=== PATIENT | male | born 1995 | race Caucasian/White ===

== ENCOUNTER 2017-08-20 10:42 | Emergency (ER) | payer OTHER ==
[~2017-08-20 10:42] MED LIST: NAPR500T75 PO
--- NOTE | 2017-08-20 11:03 | ER Report ---
History and Physical Time Seen By MD: 11:02 Hx. of Stated Complaint: PATIENT REPORTS CHEST PAIN YESTERDAY MORNING. HE ALSO REPORTS DIZZINESS AND A HEADACHE. PATIENT REPORTS THAT HE IS FREE OF CHEST PAIN NOW BUT HEADACHE AND DIZZINESS ARE STILL PRESENT HPI/ROS CHIEF COMPLAINT: Chest pain HISTORY OF PRESENT ILLNESS: This is a 22-year-old male who presents to the emergency department for nausea, dizziness and resolving chest pain. Patient states that on the August he consumed large amount of alcohol and it up with some chest pain, since then he's had a resolution of the chest pain however he still has some residual dizziness, lightheadedness and a headache behind his eyes and overall just not feeling well. Still having intermittent shortness of breath. Patient states he consumes alcohol on a relatively regular basis, 4-5 drinks every few days. Patient also has a history of hypertension that is not being treated. Patient states he has a family history hypertension. No chills, no sore throats no rashes. REVIEW OF SYSTEMS: Constitutional: No fever, no chills. Eyes: No discharge. ENT: No sore throat. Cardiovascular: As above. Respiratory: No cough, no shortness of breath. Gastrointestinal: As above. Genitourinary: No hematuria. Musculoskeletal: No back pain. Skin: No rashes. Neurological: As above. Allergies: Coded Allergies: No Known Drug Allergies (Unverified , 01/24/17) Home Meds Discontinued Scripts Naproxen (NAPROSYN) 500 Mg Tablet, 500 MG PO Q12H for PAIN, #20 TAB 0 Refills Prov:SHEYLA RICKS MD 01/24/17 Past Medical/Surgical History The patient has a past medical and surgical history of vision problems, wears glasses, drinks 5-6 drinks every 2-3 days.. Reviewed Nurses Notes: Yes Constitutional Vital Sign - Last 24 Hours 08/20/17 08/20/17 08/20/17 08/20/17 10:45 10:48 10:57 11:03 Temp 102.1 Pulse 105 104 Resp 24 B/P (MAP) 149/98 149/98 (115) 152/101 (118) Pulse Ox 93 92 O2 Delivery Room Air 08/20/17 08/20/17 08/20/17 08/20/17 11:12 11:15 11:26 11:27 Temp 101.8 Pulse 101 101 95 Resp 14 11 13 Pulse Ox 92 92 94 08/20/17 08/20/17 08/20/17 08/20/17 11:30 11:42 11:45 11:55 Pulse 108 86 88 Resp 11 6 B/P (MAP) 141/88 (105) Pulse Ox 92 94 08/20/17 08/20/17 08/20/17 08/20/17 12:00 12:29 12:30 12:45 Pulse 91 92 94 Resp 14 12 11 B/P (MAP) 136/92 (107) Pulse Ox 93 92 93 O2 Delivery Room Air Room Air Room Air 08/20/17 13:18 Temp 100.3 Pulse 98 Resp 20 B/P (MAP) 141/86 (104) Pulse Ox 94 O2 Delivery Room Air Intake and Output 08/20/17 08/20/17 08/21/17 15:00 23:00 07:00 Intake Total 1000 ml Balance 1000 ml Physical Exam General Appearance: The patient is alert, has no immediate need for airway protection and no signs of toxicity. Eyes: Pupils equal and round no pallor or injection. ENT, Mouth: Mucous membranes are moist. Respiratory: There are no retractions, lungs are clear to auscultation. Cardiovascular: Regular rate and rhythm, no murmurs, clicks or rubs. Gastrointestinal: Abdomen is soft and non tender, no masses, bowel sounds normal. Neurological: Alert and oriented 4. Moving all extremities. Following all commands. No focal neuro deficits. Skin: Warm and dry, no rashes. Musculoskeletal: Neck is supple non tender. Extremities are nontender, nonswollen and have full range of motion. DIFFERENTIAL DIAGNOSIS: After history and physical exam differential diagnosis was considered for shortness of breath including but not limited to pulmonary infectious process, COPD, alcohol gastritis, asthma, pulmonary embolus and congestive heart failure. Medical Decision Making Data Points Result Diagram: 08/20/17 1053 08/20/17 1053 Laboratory Hematology Test 08/20/17 10:53 Red Blood Count 5.34 M/uL (4.00-5.60) Mean Corpuscular Volume 89.8 fL (80.0-96.0) Mean Corpuscular Hemoglobin 32.8 pg (26.0-33.0) Mean Corpuscular Hemoglobin Concent 36.6 g/dL (32.0-36.0) Red Cell Distribution Width 12.5 % (11.5-14.5) Mean Platelet Volume 8.9 fL (7.2-11.1) Neutrophils (%) (Auto) 66.8 % (39.4-72.5) Lymphocytes (%) (Auto) 21.2 % (17.6-49.6) Monocytes (%) (Auto) 11.2 % (4.1-12.4) Eosinophils (%) (Auto) 0.0 % (0.4-6.7) Basophils (%) (Auto) 0.8 % (0.3-1.4) Nucleated RBC Relative Count (auto) 0.1 /100WBC Neutrophils # (Auto) 2.4 K/uL (2.0-7.4) Lymphocytes # (Auto) 0.8 K/uL (1.3-3.6) Monocytes # (Auto) 0.4 K/uL (0.3-1.0) Eosinophils # (Auto) 0.0 K/uL (0.0-0.5) Basophils # (Auto) 0.0 K/uL (0.0-0.1) Nucleated RBC Absolute Count (auto) 0.00 K/uL D-Dimer Quantitative (PE/DVT) 0.51 ug/ml (0-0.50) Sodium Level 138 mmol/L (137-145) Potassium Level 3.4 mmol/L (3.5-5.0) Chloride Level 100 mmol/L (98-107) Carbon Dioxide Level 24 mmol/L (22-30) Blood Urea Nitrogen 10 mg/dl (9-21) Creatinine 1.20 mg/dl (0.66-1.25) Glomerular Filtration Rate Calc > 60.0 Random Glucose 107 mg/dl (75-110) Calcium Level 9.0 mg/dl (8.4-10.2) Total Bilirubin 1.0 mg/dl (0.2-1.3) Aspartate Amino Transf (AST/SGOT) 78 U/L (0-35) Alanine Aminotransferase (ALT/SGPT) 135 U/L (0-56) Alkaline Phosphatase 57 U/L (0-126) Troponin I < 0.012 ng/ml Total Protein 7.2 g/dl (6.3-8.2) Albumin 4.4 g/dl (3.5-5.0) Chemistry Test 08/20/17 10:53 White Blood Count 3.6 k/uL (4.5-11.0) Red Blood Count 5.34 M/uL (4.00-5.60) Hemoglobin 17.5 g/dL (14.0-18.0) Hematocrit 48.0 % (42.0-52.0) Mean Corpuscular Volume 89.8 fL (80.0-96.0) Mean Corpuscular Hemoglobin 32.8 pg (26.0-33.0) Mean Corpuscular Hemoglobin Concent 36.6 g/dL (32.0-36.0) Red Cell Distribution Width 12.5 % (11.5-14.5) Platelet Count 148 K/uL (150-450) Mean Platelet Volume 8.9 fL (7.2-11.1) Neutrophils (%) (Auto) 66.8 % (39.4-72.5) Lymphocytes (%) (Auto) 21.2 % (17.6-49.6) Monocytes (%) (Auto) 11.2 % (4.1-12.4) Eosinophils (%) (Auto) 0.0 % (0.4-6.7) Basophils (%) (Auto) 0.8 % (0.3-1.4) Nucleated RBC Relative Count (auto) 0.1 /100WBC Neutrophils # (Auto) 2.4 K/uL (2.0-7.4) Lymphocytes # (Auto) 0.8 K/uL (1.3-3.6) Monocytes # (Auto) 0.4 K/uL (0.3-1.0) Eosinophils # (Auto) 0.0 K/uL (0.0-0.5) Basophils # (Auto) 0.0 K/uL (0.0-0.1) Nucleated RBC Absolute Count (auto) 0.00 K/uL D-Dimer Quantitative (PE/DVT) 0.51 ug/ml (0-0.50) Glomerular Filtration Rate Calc > 60.0 Calcium Level 9.0 mg/dl (8.4-10.2) Total Bilirubin 1.0 mg/dl (0.2-1.3) Aspartate Amino Transf (AST/SGOT) 78 U/L (0-35) Alanine Aminotransferase (ALT/SGPT) 135 U/L (0-56) Alkaline Phosphatase 57 U/L (0-126) Troponin I < 0.012 ng/ml Total Protein 7.2 g/dl (6.3-8.2) Albumin 4.4 g/dl (3.5-5.0) Coagulation Test 08/20/17 10:53 D-Dimer Quantitative (PE/DVT) 0.51 ug/ml EKG/Imaging EKG Interpretation 12 lead EKG: Time of EKG 1046. Rhythm: Sinus tachycardia, 101 bpm. [place]: Right QRS: normal ST segments: No ST depression or elevation identified. Imaging CT angiogram chest with contrast Indication: Shortness of breath and chest pain. Comparison: None available. Technique: Axial CT images are obtained through the chest after administration of 75 mL Isovue 370 IV contrast. Reformatted coronal and sagittal images were reviewed as well as coronal MIP images. One of the following dose optimization techniques was utilized in the performance of this exam: automated exposure control; adjustment of the mA and/ or kV according to the patient's size; or use of an iterative reconstruction technique. Specific details can be referenced in the facility's radiology CT exam operational policy. FINDINGS: No evidence of filling defect within the pulmonary vasculature to suggest pulmonary embolus. The heart is upper limits normal for size. No pericardial effusion. The aorta shows no aneurysm or dissection. The mediastinum and hilar regions show no enlarged lymph nodes or abnormal density. Functional consolidation, pleural effusion, pneumothorax, discrete nodule or focal interstitial opacities. Airways are clear. Bony structures show no acute fracture or aggressive bone lesion. Bone island in the left glenoid. The chest wall shows no enlarged axillary lymph nodes or masses. Limited views of the upper abdomen are unremarkable. IMPRESSION: 1. No indication of pulmonary embolus. 2. No acute cardiopulmonary disease. Report Dictated By: Ralph Nino at 08/20/2017 12:39 PM Report E-Signed By: Ralph Nino at 08/20/2017 12:48 PM WSN:[id number] ED Course/Re-evaluation Clinical Indication for ER IV: Hydration, IV Access ED Course The patient was admitted to room. A history and physical were obtained. Differential diagnoses were considered. An IV was started. A CBC, CMP, and d- dimer were obtained. CBC showing WBCs 3.6, chemistry showing AST 78 ALT 135, negative troponin, d-dimer 0.51. I did review the lab studies with the patient, did tell him that with an elevated d-dimer go ahead and proceed with a CTA of the chest, patient is in agreement with this plan of care. CTA was negative for pulmonary emboli no acute cardiopulmonary processes.Patient was given 324 mg baby aspirin, 4 mg IV Zofran, 1 L normal saline bolus. EKG showing sinus tachycardia, no ST elevation or depression. Patient states he is feeling better. I did tell the patient that I feel he has an alcohol related gastritis and a viral syndrome as well. The patient was instructed to reduce the amount of alcohol he consumes on a weekly basis, I also instructed him to follow-up with a primary care provider here in town for his known hypertension. We also discussed lifestyle changes such as changing his dietary habits, increasing water, reducing alcohol and exercising. The patient was responsive to the suggestions, states he'll try to follow-up and reduce his alcohol consumption. Patient was also instructed to return to the ED for any other concerns or worsening symptoms. Patient had no other questions or concerns at this time and was discharged home. 08/20/2017 11:49:40 am the patient's d-dimer is elevated, I did discuss the test results with the patient, I did tell him the next step would be a CTA of the chest, patient is in agreement. Decision to Disposition Date: Aug 20, 2017 Decision to Disposition Time: 13:05 Depart Departure Latest Vital Signs Vital Signs Date Time Temp Pulse Resp B/P (MAP) Pulse Ox O2 Delivery O2 Flow Rate FiO2 08/20/17 13:18 100.3 98 20 141/86 (104) 94 Room Air Impression: Primary Impression: Alcoholic gastritis Additional Impression: Viral syndrome Condition: Improved Disposition: HOME OR SELF-CARE Patient Instructions: At-Risk Alcohol Use (ED), Hypertension (ED), Viral Syndrome (ED) Additional Instructions: Drink plenty of fluids. Get plenty of rest. Follow up with and establish a primary care provider for your hypertension within one week. Also, really consider reducing the amount of alcohol you are consuming. I believe you have a viral illness and will likely pass. Return to the ED for any other concerns or worsening symptoms. Take ibuprofen or Tylenol as needed for pain, aches and chills. Problem Qualifiers Primary Impression: Alcoholic gastritis Chronicity: acute Gastritis bleeding: without bleeding Qualified Codes: K29.20 - Alcoholic gastritis without bleeding MADISYN FIGUEROA MOBILE ENGINEER- Aug 20, 2017 11:03
[2017-08-20] MEDS ORDERED: NS(*) 0.9% 1000 ML BAG 1,000 ML IV ONE (11:12)
[2017-08-20] MEDS ORDERED: ONDANSETRON 4 MG/2 ML VIAL IVP ONE (11:15)
[2017-08-20] MEDS ORDERED: ASPIRIN 81 MG CHEW PO ONE (11:15)
--- NOTE | 2017-08-20 11:20 | EKG ---
FACILITY: [facility] PATIENT NAME: BHUPENDRA TELLO : [id number] MR: [id number] V: [id number] EXAM DATE: ORDERING PHYSICIAN: MADISYN FIGUEROA TECHNOLOGIST: MERRY Lambert Reason : CHEST PAIN Blood Pressure : / mmHG Vent. Rate : 101 BPM Atrial Rate : 101 BPM P-R Int : 146 ms QRS Dur : 082 ms QT Int : 332 ms P-R-T Axes : 067 123 059 degrees QTc Int : 430 ms Sinus tachycardia Right axis deviation Abnormal ECG When compared with ECG of 24-JAN-2017 11:49, No significant change was found Confirmed by KRYSTYNA DUCKWORTH ([id number]) on 08/21/2017 6:23:34 AM Referred By: EMILY Confirmed By:KRYSTYNA DUCKWORTH
[2017-08-20 11:29] LABS: PLATELET COUNT, AUTOMATED 148 K/uL (150-450)
[2017-08-20] MEDS ORDERED: NS 0.9% 25 ML BAG 50 ML ONE (12:16)
[2017-08-20] MEDS ORDERED: IOPAMIDOL 76% 75 ML INFUS BTL 75 ML ONE (12:16)
--- NOTE | 2017-08-20 12:52 | RADIOLOGY IMAGING REPORT ---
FACILITY: [facility] PATIENT NAME: Justus Gerber : 1995 MR: [id number] V: [id number] EXAM DATE: ORDERING PHYSICIAN: MADISYN FIGUEROA TECHNOLOGIST: Location: [facility] [place] Patient: Justus Gerber : 1995 Visit/Account:[id number] Date of Sevice: 08/20/2017 CT angiogram chest with contrast Indication: Shortness of breath and chest pain. Comparison: None available. Technique: Axial CT images are obtained through the chest after administration of 75 mL Isovue 370 IV contrast. Reformatted coronal and sagittal images were reviewed as well as coronal MIP images. One of the following dose optimization techniques was utilized in the performance of this exam: auto mated exposure control; adjustment of the mA and/or kV according to the patient's size; or use of an iterative reconstruction technique. Specific details can be referenced in the facility's radiology C T exam operational policy. FINDINGS: No evidence of filling defect within the pulmonary vasculature to suggest pulmonary embolus. The heart is upper limits normal for size. No pericardial effusion. The aorta shows no aneurysm or di ssection. The mediastinum and hilar regions show no enlarged lymph nodes or abnormal density. Functional consolidation, pleural effusion, pneumothorax, discrete nodule or focal interstitial opaci ties. Airways are clear. Bony structures show no acute fracture or aggressive bone lesion. Bone island in the left glenoid. Th e chest wall shows no enlarged axillary lymph nodes or masses. Limited views of the upper abdomen are unremarkable. IMPRESSION: 1. No indication of pulmonary embolus. 2. No acute cardiopulmonary disease. Report Dictated By: Ralph Nino at 08/20/2017 12:39 PM Report E-Signed By: Ralph Nino at 08/20/2017 12:48 PM WSN:[id number]
[2017-08-20 13:18] VITALS: BP 141/86
== END 2017-08-20 13:25 | disposition home or self-care (01) ==
LOC: ER 11:04
DX: K29.20 Alcoholic gastritis without bleeding (principal); B34.9 Viral infection, unspecified; R00.0 Tachycardia, unspecified
CPT/HCPCS: 71275; 84484; 85025; 85379; 93005; 96361; 96374; 99284; J2405; J7030; Q9967; 82040; 82247; 82310; 82374; 82435; 82565; 82947; 84075; 84132; 84155; 84295; 84450; 84460; 84520